=== PATIENT | male | born 1940 | race Caucasian/White ===

== ENCOUNTER 2018-01-31 09:33 | Day surgery (SDC) | payer BC, MEDICARE ==
[~2018-01-31 09:33] MED LIST: ACETAMINOPHEN 1,000 MG/100 ML BTL IV ONE; CEFAZOLIN 2 Gram 2 GM/50 ML BAG IVPB ONE
[2018-01-31] MEDS ORDERED: BUPIVACAINE 0.5% W/EPI MPF 30 ML VIAL IVP ONE (09:34)
[2018-01-31] MEDS ORDERED: ROPIVACAINE HCL (NAROPIN) /PF 5MG/ML 20ML VIAL IV ONE (09:34)
[2018-01-31] MEDS ORDERED: METHYLPREDNISOLONE 40MG/VIAL IM ONE (09:34)
[2018-01-31] MEDS ORDERED: MORPHINE SULFATE PF 10MG/10ML VIAL IV ONE (09:34)
[2018-01-31] MEDS ORDERED: DEXAMETHASONE 4 MG/ML 1ML VIAL IVP ONE (09:34)
[2018-01-31 09:49] LABS: BASO % 0.6 % (0-6); EOS % 3.2 % (0-6); GRAN % 59.2 % (47-80); HEMATOCRIT 43.2 % (42.0-52.0); HEMOGLOBIN 14.8 gm/dl (14.0-18.0); LYMPH % 26.5 % (16-45); MEAN CELL VOLUME 96.9 fl (81-97); MEAN CORPUSCULAR HEMOGLOBIN 33.2 pg (27-33); MEAN CORPUSCULAR HGB CONC 34.3 g/dl (32-36); MEAN PLATELET VOLUME 9.8 fl (7.4-10.4); MONO % 10.5 % (0-9); PLATELET COUNT 161 K/uL (130-400); RED BLOOD COUNT 4.46 M/uL (4.40-5.70); RED CELL DISTRIBUTION WIDTH 12.4 % (11.5-14.5); WHITE BLOOD COUNT W/O DIFF 5.2 K/uL (4.2-12.2)
[2018-01-31 09:51] LABS: URINE APPEARANCE CLEAR; URINE BILIRUBIN NEGATIVE (NEGATIVE); URINE BLOOD TRACE-I (NEGATIVE); URINE COLOR YELLOW; URINE GLUCOSE (UA) NEGATIVE (NEGATIVE); URINE KETONE NEGATIVE (NEGATIVE); URINE LEUKOCYTE ESTERASE NEGATIVE (NEGATIVE); URINE NITRITE NEGATIVE (NEGATIVE); URINE PROTEIN NEGATIVE (NEGATIVE); URINE UROBILINOGEN 0.2 E.U./dL (0.20 - 1.00)
[2018-01-31 10:02] LABS: URINE BACTERIA NONE SEEN; URINE EPITHELIAL CELLS 0 - 2 (FEW); URINE MUCUS LIGHT; URINE RBC 0 - 2 (NONE SEEN); URINE WBC 0 - 2 (0-2/hpf)
[2018-01-31 10:06] LABS: BLOOD UREA NITROGEN 16 mg/dL (8-23); CREATININE 0.8 mg/dL (0.7-1.2); EST GLOMERULAR FILTRATION RATE > 60 mL/min; GLUCOSE,RANDOM 98 mg/dL (74-109)
--- NOTE | 2018-02-01 20:15 | Operative Note ---
DATE OF SURGERY: 01/31/2018 PREOPERATIVE DIAGNOSIS: SEVERE IMPINGEMENT RIGHT SHOULDER, QUESTION TEAR OF THE ROTATOR CUFF. POSTOPERATIVE DIAGNOSES: 1. CHRONICALLY TORN RIGHT ROTATOR CUFF TENDON. 2. COMPLEX GLENOHUMERAL LABRAL TEAR FROM APPROXIMATELY THE 9 TO 3 O'CLOCK POSITION. . 3. 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 4. GRADE 3 CHONDROMALACIA OF THE GLENOID. 5. PROFOUND EXTERNAL IMPINGEMENT, RIGHT SHOULDER. 6. ADVANCED ARTHROSIS, RIGHT DISTAL CLAVICLE. PROCEDURE: 1. REPAIR OF A CHRONICALLY TORN ROTATOR CUFF TEAR. 2. RIGHT SHOULDER ARTHROSCOPY WITH INTRA-ARTICULAR DEBRIDEMENT. 3. RIGHT SHOULDER OPEN ACROMIOPLASTY. CA LIGAMENT RESECTION SUBACROMIAL BURSECTOMY. 4. RIGHT SHOULDER DISTAL CLAVICLE RESECTION. STAFF SURGEON: RANJAN LANDA M.D. ANESTHESIA: GENERAL. PREPARATION: CHLORAPREP. INDIVIDUAL CONSIDERATIONS: NONE. PROCEDURE: The patient was taken to the Operating Room and placed supine on the operating table. He had a successful induction of a general anesthetic. He was then placed in a semi-seated beach chair position and his right arm and shoulder were prepped and draped in the usual fashion. Examination under anesthesia showed no instability. The patient had a posterior portal identified for arthroscopy. The skin was infiltrated with 0.50% Marcaine with Epinephrine prior. An #18-gauge spinal needle was easily placed in the joint and the joint was inflated with normal saline with a 60 mL syringe. A stab wound was made and a blunt-tipped trocar for the scope was easily placed in the joint and the joint was inflated with normal saline. An anterior accessory portal was then made just inferior to the intact long head of the biceps tendon in a retrograde fashion with a Wissinger james and the joint was irrigated out. The patient had fraying of the rotator cuff underneath. It looked like either a complete or incomplete tear at the supraspinatus. The subscap looked okay. Lots of unstable fraying of the labrum from about 9 to 3 with multiple unstable flaps. I would say the biceps was frayed and about half detached from the fraying. A shaver was introduced. The unstable portions of the biceps were debrided. The unstable labrum was debrided underneath and I debride out the rotator cuff tendon pieces that were stable. I smoothed off the grade 3 changes on the glenohumeral joint. The subscap again looked okay. No loose bodies were seen inferiorly. After irrigation, portals were closed with kenney. The patient had an anterior approach to the subacromial space and distal clavicle. The skin was again infiltrated with 0.50% Marcaine with Epinephrine prior. Sharp dissection was carried down through the skin and subcutaneous tissue. Small veins were coagulated with a Bovie. An anterior deltoid interval was developed and care was taken not to split the deltoid more than about 4 cm distal to the anterior tip of the acromion to prevent injury to the axillary nerve. Once in the subacromial space, he had an extremely thickened bursa and large spurs especially at the AC joint and the anterior acromion. Deltoid was then taken subperiosteally off the anterior aspect of the acromion, over the top of the intact CA ligament, and off the anterior aspect of the highly degenerated distal clavicle. CA ligament was resected with a Bovie. Distal clavicle was resected with an oscillating saw taking roughly a centimeter. The patient had large anterior hook spur on the acromion and an anterior acromioplasty was performed tapering to wedge posteromedially to including the large spurs of the AC joint. The undersurface was then smoothed with a rasp. Very thick bursa was debrided out with Metzenbaum scissors. I now had a good look at the rotator cuff. Near its insertion, there was about a centimeter to 1.5 cm of retraction where it was torn and just barely hanging on. There was some ratty areas at the spurs of the AC joint. I was able to freshen up the tuberosity with a bur and then place retention sutures into the end of the tendon that was retracting back, which was highly vascular and brought it back to tuberosity and going through holes roughly through the bone and tied down distally. This effected to be an anatomic repair. I put the shoulder through a full range of motion to ensure no further impingement. After irrigation, the deltoid was reattached to the remaining acromion with multiple interrupted #2 Vicryl going directly through the bony acromion. The periosteal cuff and distal clavicle were closed with running #2 Vicryl, the anterior deltoid interval was closed after irrigation with a running #1 Vicryl, subcut was closed with 2-0 plus Vicryl, and the skin was closed with kenney. An 18-gauge spinal needle was placed into the subacromial space. Roughly 20 mL of 0.50% Marcaine with Epinephrine along with 10 mg of Morphine were injected into the space through the needle and a sterile Bulkee compressive dressing and sling were applied. The patient tolerated the procedure well. Needle and sponge counts were correct. Estimated blood loss was minimal and he was taken back to Recovery in good condition. There were no complications. cc: Dr. Wilmer Mckeon JOB NUMBER: [id number] MTDD
== END 2018-01-31 15:02 | disposition home or self-care (01) ==
LOC: SUR 09:33
PROVIDERS: ATTEND Orthopaedic Surgery
DX: M75.121 Complete rotator cuff tear or rupture of right shoulder, not specified as traumatic (principal); S43.431A Superior glenoid labrum lesion of right shoulder, initial encounter; M94.211 Chondromalacia, right shoulder; M19.011 Primary osteoarthritis, right shoulder; I10 Essential (primary) hypertension; N40.0 Benign prostatic hyperplasia without lower urinary tract symptoms
CPT/HCPCS: 23412; 23125; 23415; 29823; 01630; 85025; 80048; 81001; J0690; J2795; J1030

== ENCOUNTER 2018-02-21 06:54 | Day surgery (SDC) | payer MEDICARE ==
[~2018-02-21 06:54] MED LIST changes: -ACETAMINOPHEN 1,000 MG/100 ML BTL IV ONE; +CELECOXIB 100 MG CAPSULE PO ONE; +FAMOTIDINE 20MG TABLET PO ONE; +MECLIZINE 25 MG TABLET PO ONE; +METOCLOPRAMIDE 10 MG TABLET PO ONE; +VANCOMYCIN HCL 1,000 MG in DEXTROSE 5 % IN WATER 250 ML IVPB ONE
[2018-02-21] MEDS ORDERED: BUPIVACAINE 0.5% W/EPI MPF 30 ML VIAL IVP ONE (06:55)
[2018-02-21] MEDS ORDERED: PHENYLEPHRINE HCL 10 MG/ML VIAL IVP ONE (06:55)
[2018-02-21] MEDS ORDERED: TRANEXAMIC ACID 1,000 MG/10 ML ML IV ONE ×2 (06:55)
[2018-02-21] MEDS ORDERED: 0.9 % SODIUM CHLORIDE 10 ML VIAL IVP ONE (06:55)
[2018-02-21] MEDS ORDERED: *PACU ONLY* KETAMINE HCL 10 MG/ML (20ML) VIAL IV ONE (06:55)
[2018-02-21] MEDS ORDERED: DEXAMETHASONE 4 MG/ML 1ML VIAL IVP ONE (06:55)
[2018-02-21] MEDS ORDERED: ONDANSETRON HCL IV 4 MG/2 ML VIAL IVP ONE (06:55)
[2018-02-21] MEDS ORDERED: CELECOXIB 100 MG CAPSULE PO ONE (06:55)
[2018-02-21] MEDS ORDERED: PROPOFOL 10 MG/ML VIAL IV ONE (06:55)
[2018-02-21] MEDS ORDERED: MIDAZOLAM HCL 2MG/2ML VIAL IV ONE (06:55)
[2018-02-21] MEDS ORDERED: KETOROLAC 30 MG/ML VIAL IVP ONE (06:55)
[2018-02-21] MEDS ORDERED: EPHEDRINE SULFATE 50 MG/ML ML IV ONE (06:55)
[2018-02-21 07:57] LABS: ABO GROUP A; ANTIBODY SCREEN NEGATIVE (NEGATIVE); RH TYPE POSITIVE
[2018-02-21 11:01] LABS: BASO % 0.3 % (0-6); EOS % 0.8 % (0-6); GRAN % 75.3 % (47-80); HEMATOCRIT 31.8 % (42.0-52.0); HEMOGLOBIN 10.9 gm/dl (14.0-18.0); LYMPH % 14.9 % (16-45); MEAN CELL VOLUME 97.5 fl (81-97); MEAN CORPUSCULAR HEMOGLOBIN 33.4 pg (27-33); MEAN CORPUSCULAR HGB CONC 34.3 g/dl (32-36); MEAN PLATELET VOLUME 8.8 fl (7.4-10.4); MONO % 8.7 % (0-9); PLATELET COUNT 156 K/uL (130-400); RED BLOOD COUNT 3.26 M/uL (4.40-5.70); RED CELL DISTRIBUTION WIDTH 12.3 % (11.5-14.5); WHITE BLOOD COUNT W/O DIFF 8.7 K/uL (4.2-12.2)
[2018-02-21] MEDS ORDERED: HYDROCODONE/APAP 7.5/325MG TABLET PO PRN ×2 (12:41→12:42)
[2018-02-21] MEDS ORDERED: ONDANSETRON HCL IV 4 MG/2 ML VIAL IVP PRN (12:43)
--- NOTE | 2018-02-21 14:29 | Rehab Evaluation ---
Patient Information - Patient Information Diagnosis: R hip DJD Ordered Treatment: PT Evaluate and Treat Status: Initial Evaluation Surgery: Yes Date of Surgery: 02/21/18 Past Medical/Surgical Hx: PAST MEDICAL/SURGICAL HISTORY Past Surgical History right shoulder sx 01-31-18 cardiac ablation 1 yr ago and 15 yrs ago left shoulder lung bx removal lower right lobe lung c scopes cardioversions cook filter PMH - Respiratory Hx Respiratory Disorders Yes Hx Bronchitis Yes: in past Hx Pneumonia Yes: 15 yrs ago Hx Pulmonary Embolism Yes: 2 1/2 yrs ago Hx Sleep Apnea Yes: mild Hx of CPAP No Comment: pt had right lower lobe of lung removed was told CA pathology neg for CA PMH - Cardiovascular Hx Cardiovascular Disorders Yes Hx Abnormal EKG Yes Hx Deep Vein Thrombosis Yes Hx Irregular Heartbeat Yes: hx a fib ablation around 1 yr ago and 15 yrs ago states afib resolved Comment: triathalon participant PMH - Neuro Hx Neurological Disorders No PMH - GI Hx Gastrointestinal Disorders Yes PMH - Hx Genitourinary Disorders Yes Hx Bladder Problem Yes: frequent urination at night Hx Prostate Problems Yes: BPH on meds PMH - Endocrine Hx Endocrine Disorders No PMH - Musculoskeletal Hx Musculoskeletal Disorders Yes Hx Arthritis Yes: right hip Comment: pt had right RTCR 01-31-18 PMH - Psych Hx Psychiatric Problems No PMH - Hematology/Oncology Hx Hematology/Oncology No Disorders Premorbid Status: Detail (The patient was independent with all mobility prior to surgery. The patient underwent a right rotator cuff repair 3 weeks ago.) Social History: Detail (The patient lives with spouse in a "reverse" one story house with 3 steps without a railing at the front entrance. The patient's bathroom is equipped with a [id number] without grab bars and a standard toilet seat. The patient does have a riser seat insert. The patien has a walker with wheels and a 4 pronged cane.) Precautions: None given, [place], Fall, Other (WBAT on the R LE and R THR precautions.) - Time With Patient Treatment Procedures: Detail (Initial Evaluation.) Subjective Information - Subjective Information Per Patient (The patient had no complaints of pain.) Objective Data - Mental Status Patient Orientation: Oriented x3 - Visual Perception Appears within normal limits for therapeutic activities - ROM Not within normal limits (The patient's R hip is within total hip precautions. All other LE arom is WNL.) - Strength/Tone Not within normal limits (The patient's R LE strength was not tested s/p surgery but was WFL ie: patient was able to lift R LE out of bed. The patient' s L LE strength was 4+ to 5/5.) - Bed Mobility Independent (The patient was independent with supine to and from sit and scooting up in bed , correctly following THR precautions.) - Transfers Independent (The patient was independent with sit to and from stand transfer. The patient's was concerned re: car transfer. Proper method was explained to patient and his . RN was notified of patient's concern of car transfer and stating nursing staff would assist and home nursing staff would assist her at his house.) - Balance Balance Sitting: Good Balance Standing: Good - Sensation Intact - Gait Detail (The patient ambulated independently with 2 wheeled walker a distance of 150 feet WBAT on the R LE, correctly following hip precautions and using proper technique. The patient ambulated on 3 steps with supervision for safety only with use of railing and quad cane. The patient's was present to observe .) Therapy Assessment - Therapy Assessment Detail (The patient was alert and no longer impulsive as he was at first PT treatment attempt one hour earlier. The patient was safe and independent with all mobility and transfers and correctly followed THR precautions. Supervision on stairs is recommended. All inpatient PT goals have been met. The patient is to receive Home PT.) Patient Education - Patient Education Teaching Topic: Exercise/Activity (The patient completed THR exercises without verbal cues: hip abduction, gluteal sets, quad sets, hamstring sets, ankle pumps and heel slides.), Precautions (Patient was able to indentify THR precautions and was given written instructions.) Response: Return Demonstration Teaching Method: Discussion, Handout Teaching Recipient: Patient Barriers To Learning: Age Related Problem List - Problem List Physical Therapy Problem List: Detail (1) Decrease R LE strength as to be expected following surgery.) Goals - Goals Physical Therapy Goals: All inpatient PT goals have been met. Patient is to receive Home PT. Prognosis - Prognosis Good Plan - Plan Physical Therapy Plan: Discharged from inpatient PT. Patient to receive Home PT.
[2018-02-21] MEDS ORDERED: CEFTRIAXONE SODIUM 2 GM in 0.9 % SODIUM CHLORIDE 100ML 100 ML IVPB ONE (15:00)
--- NOTE | 2018-02-21 15:07 | Rehab Evaluation ---
Patient Information - Patient Information Diagnosis: R hip DJD Ordered Treatment: OT Evaluate and Treat Status: Initial Evaluation Surgery: Yes Date of Surgery: 02/21/18 Past Medical/Surgical Hx: PAST MEDICAL/SURGICAL HISTORY Past Surgical History right shoulder sx 01-31-18 cardiac ablation 1 yr ago and 15 yrs ago left shoulder lung bx removal lower right lobe lung c scopes cardioversions cook filter PMH - Respiratory Hx Respiratory Disorders Yes Hx Bronchitis Yes: in past Hx Pneumonia Yes: 15 yrs ago Hx Pulmonary Embolism Yes: 2 1/2 yrs ago Hx Sleep Apnea Yes: mild Hx of CPAP No Comment: pt had right lower lobe of lung removed was told [place] pathology neg for CA PMH - Cardiovascular Hx Cardiovascular Disorders Yes Hx Abnormal EKG Yes Hx Deep Vein Thrombosis Yes Hx Irregular Heartbeat Yes: hx a fib ablation around 1 yr ago and 15 yrs ago states afib resolved Comment: triathalon participant PMH - Neuro Hx Neurological Disorders No PMH - GI Hx Gastrointestinal Disorders Yes PMH - Hx Genitourinary Disorders Yes Hx Bladder Problem Yes: frequent urination at night Hx Prostate Problems Yes: BPH on meds PMH - Endocrine Hx Endocrine Disorders No PMH - Musculoskeletal Hx Musculoskeletal Disorders Yes Hx Arthritis Yes: right hip Comment: pt had right RTCR 01-31-18 PMH - Psych Hx Psychiatric Problems No PMH - Hematology/Oncology Hx Hematology/Oncology No Disorders Premorbid Status: Detail (The patient was independent with all mobility and I/ ADLs prior to surgery. The patient underwent a right rotator cuff repair sx 3 weeks ago.) Social History: Detail (The patient lives with spouse in a "reverse" 2 story house (living on upper level) with 2 steps to enter at garage without a railing. The patient's bathroom is equipped with a ijnu-qz-tiqwyl with a hand held shower head, without grab bars, and a standard toilet seat with toilet seat riser. Pt has a 2WW and quad cane.) Precautions: [place], Fall, Other (WBAT on the R LE and hip precautions. Lifting restrictions RUE (8 lbs.) d/t rotator cuff repair for 6-8 weeks from date of sx.) - Time With Patient Total Time Spent With Patient (Min): 45 Treatment Procedures: Detail (Initial Evaluation: Moderate Complexity. Initial eval completed by OT student, Kaylie Trejo, under direct supervision of OTRL. Pt left in SS EOB with call light and bed side table within reach and all needs met. Pt was educated to not get out of bed without nursing staff presently. Nursing staff was notified.) Subjective Information - Subjective Information Per Patient (Pt stated he had a "right rotator cuff surgery 3 weeks ago", was "not given any precautions", and has been "paddling half a mile to 6 miles a day ". Pt also stated he was "going home today".) Objective Data - Pain Pain Present: No Pain Scale Used: Numeric (1 - 10) (0/10) - ROM Within normal limits (AROM: RUE was WFL for shoulder flexion and abduction, IR impaired, and all other planes WNL. LUE was WNL in all planes.) - Strength/Tone Within normal limits (RUE not tested d/t precautions related to recent rotator cuff sx. LUE was 4+/5 for shoulder flexion, abduction, and biceps. LUE triceps was MMT level was unclear d/t poor sitting balance with effort to utilize triceps with minimal resistance (potentially 3/5).) - Bed Mobility Independent (Supine<>SS EOB from a flat surface without bed rails Indp. while following hip precautions.) - Transfers Independent (Sit<>stand with 2WW moderate assist with min VC for proper hand placement. Pt also required mod VC to adhere to hip precautions during sit> stand with 2WW.) - Balance Balance Sitting: Fair Balance Standing: Fair (Requires use of walker for support at this time.) - Sensation Deficit (BLE pt. reported feeling has not returned completely yet.) - ADL's/IADL's Detail (Educated pt and pt's spouse regarding hip precautions before pt participated in ADL tasks. Also educated/trained pt regarding adaptive LB dressing techniques and AE (hip kit). Pt returned demonstration of AE and verbalized understanding. However, pt returned demonstration of adaptive LB dressing techniques with max VC to adhere to hip precautions and verbalized understanding. Donned pullover t-shirt from SS EOB SUP. Donned/doffed right sock modified Indp. with use of sock aid and adhering to hip precautions. Donned shorts standing with 2WW and use of rubber turner SBA with max VC to adhere to hip precautions but required max assist x2 to stand without UE support to pull shorts up from floor level. Pt stated he plans to shower right away upon returning home because "no one is going to deny me a shower" and when asked if his walk in shower had room for a chair, the pt stated "I don't know if I would use it". Educated pt on purpose of not soaking surgical site while bathing and recommended sponge bathing for the first few days until he is strong enough to stand while bathing. Pt and family were offered the opportunity to purchase a hip kit but pt. declined at this time. Pt. and spouse were then educated on where to purchase the recommended AE for returning home. OT provided PT with an educational handout regarding hip precautions to provide pt and family when seen later today. Pt has a good support system and reported his will be available to assist as needed. However, his is of small stature and voiced concern/anxiety for being able to assist her .) Therapy Assessment - Therapy Assessment Detail (Skilled in-pt. OT services not recommended at this time. However, pt. was not compliant with hip precautions after educ. was provided. Pt. demo. impulsivity with actions, creating a high fall risk. Pt would benefit from OT home evaluation and tx with focus on bathing and environmental set up to maximize safety and independence.) Patient Education - Patient Education Teaching Topic: Equipment Use, Precautions, Other (Adaptive LB dressing techniques and AE (rubber turner, Sock aid)) Response: Return Demonstration, Reinforcement Needed, Verbalize Understanding Teaching Method: Discussion, Demonstration Teaching Recipient: Patient, Family Barriers To Learning: Other (Possible side effects to medications. Potentially personality) Prognosis - Prognosis Good (Pending compliance to hip and RTC precautions) Plan - Plan Occupational Therapy Plan: D/C from skilled inpatient OT serives at this time. Pt reported having no questions or concerns regarding returning home. Pt's had questions and concerns regarding car transfer and PT was notified.
--- NOTE | 2018-02-21 17:55 | Operative Note ---
DATE OF SURGERY: 02/21/18 PREOPERATIVE DIAGNOSIS: END-STAGE ARTHROSIS OF THE RIGHT HIP. POSTOPERATIVE DIAGNOSIS: END-STAGE ARTHROSIS OF THE RIGHT HIP. OPERATION: CEMENTLESS RIGHT TOTAL HIP ARTHROPLASTY USING CLARK AND NEPHEW COMPONENTS WITH A SIZE 60 NO-HOLE REFLECTION CUP, A 32 MM DIAMETER 35-DEGREE OFFSET LINER HIGHLY CROSSLINKED, A SIZE 16 CEMENTLESS ECHELON STEM HIGH OFFSET WITH A +32 MM DIAMETER OXINIUM HEAD. SURGEON: DR. LANDA ANESTHESIA: SPINAL. PREPARATION: CHLORAPREP. INDIVIDUAL CONSIDERATIONS: None. PROCEDURE: The patient was taken to the Operating Room and placed supine on the operating room table. He had a successful induction of a spinal anesthetic. He was then placed on his side, right side up, and his right leg and hip were prepped and draped in the usual fashion. The patient had direct posterior approach to the hip. Sharp dissection carried down through the skin and subcutaneous tissue. Small veins were coagulated with a Bovie. The tensor gluteal fascia was opened along the entire length of the incision and deep retractors were placed. Short external rotators were identified piriformis fossa and removed exposing the posterior capsule. Posterior capsulectomy was performed and the hip was dislocated posteriorly. The patient had advanced arthrosis with flattening of the head with large osteophytes and exposed bone. A femoral neck cut was then made about a fingerbreadth above the lesser troch using an oscillating saw. A rim capsulectomy was performed. Starting with a 45 mm reamer to ream just to the medial wall to get rid of the osteophyte, I reamed the introitus to 59 for a size 60 cup. I slightly under-reamed to 58 then after irrigation, I impacted a size 60 no-hole Reflection cup in 20 degrees of forward flexion and 40 degrees of abduction using the extra-articular alignment guide and bony landmarks. There was absolutely solid cementless fixation. The center cap screw was placed and after irrigation, I impacted the 35 degree offset liner with the offset primarily posteriorly and inferiorly. This gave an excellent stable acetabular construct and this was packed off. The proximal femur was delivered into the wound. Box cutting osteotome was used to remove the proximal metaphyseal bone. Midstem reaming was done to a size 16. I barely started to feel cortex maybe 13 or 14. Broaching to 16, anteversion was dialed into about 20 to 25 degrees following the natural anteversion angle. After calcar reaming with a high offset trial and a +0, I had absolute stability. The trial was removed and after irrigation, I impacted a high offset [place] stem with solid calcar contact and solid cementless fixation. Again, irrigated and dried the Mcrae taper and impacted a 32 diameter standard length [place] head, reduced the hip. I had absolute stability with full extension and external rotation. I had full anterior stability. I flexed his knee up to as far as I could get it to his chest. I even had him flex 90 to 100 degrees and internally rotated 90 degrees and it still had stability. After irrigation, the sciatic nerve was inspected and found to be completely intact. Hemostasis was obtained with a Bovie. The patient did receive a gram of Tranexamic Acid IV preoperatively. I mixed a gram of Tranexamic Acid with 30 mL of saline and placed this deep to the fascia. The fascia was then closed with a running #2 quill. The subcutaneous was closed with running 0 quill. The skin was closed with kenney. The skin and subcutaneous tissue were infiltrated with 30 mL of 0.5% Marcaine with Epinephrine prior to closure. A ABDI-type dressing was applied. The patient tolerated the procedures well. Needle and sponge counts were correct. Estimated blood loss was 700 mL. We will check hemoglobin in Recovery. There were no complications. CC: Dr. Oren Mckeon JOB NUMBER: [id number] MTDD
== END 2018-02-21 18:00 | disposition home health service (06) ==
LOC: SUR 06:54 → MEDSURG 11:33 → SUR 19:28
PROVIDERS: ATTEND Orthopaedic Surgery
DX: M16.11 Unilateral primary osteoarthritis, right hip (principal)
CPT/HCPCS: 27130; 01214; 85025; 86900; 86901; 86850; J1885; J2405; J3370; J0690; J3490; G8978; G8979 ×2; 97166; C1776; J2370; J7060